=== PATIENT | female | born 1990 | race African-American/Black ===

== ENCOUNTER 2016-11-17 22:31 | Emergency (ER) | payer OTHER ==
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
[2016-11-18 02:11] VITALS: BP 123/91
== END 2016-11-18 02:10 | disposition home or self-care (01) ==
LOC: ER 22:31
DX: S16.1XXA Strain of muscle, fascia and tendon at neck level, initial encounter (principal); M62.838 Other muscle spasm; M25.512 Pain in left shoulder; M54.6 Pain in thoracic spine; M54.2 Cervicalgia; V87.7XXA Person injured in collision between other specified motor vehicles (traffic), initial encounter
CPT/HCPCS: 99284